=== PATIENT | male | born 1975 | race Caucasian/White ===

== ENCOUNTER 2017-10-24 22:40 | Emergency (ER) | payer BC ==
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
[2017-10-24] MEDS ORDERED: Sodium Chloride 0.9% 10 ML Syringe FLUSH PRN (22:59)
[2017-10-24] MEDS ORDERED: fentaNYL 100 MCG/2 ML SDV IVPUSH ONE (23:00)
[2017-10-24] MEDS ORDERED: Sodium Chloride 0.9% 1,000 ML IV SCH (23:00)
[2017-10-24] MEDS ORDERED: Ondansetron 4 MG/2 ML SDV IVPUSH ONE (23:00)
[2017-10-24] MEDS ORDERED: Iopamidol 612 MG/ML 100 ML Bottle IV STA (23:07)
[2017-10-24] MEDS ORDERED: Sodium Chloride 0.9% 75 ML IV STA (23:07)
[2017-10-25] MEDS ORDERED: fentaNYL 100 MCG/2 ML SDV IVPUSH ONE (00:25)
== END 2017-10-25 01:52 | disposition home or self-care (01) ==
LOC: JP.ED 22:40
DX: S42.012A Anterior displaced fracture of sternal end of left clavicle, initial encounter for closed fracture (principal); S20.212A Contusion of left front wall of thorax, initial encounter; S22.32XA Fracture of one rib, left side, initial encounter for closed fracture; F17.210 Nicotine dependence, cigarettes, uncomplicated; V86.99XA Unspecified occupant of other special all-terrain or other off-road motor vehicle injured in nontraffic accident, initial encounter
CPT/HCPCS: 36415; 71260; 80048; 85027; 96361; 96374; 96375; 96376; 99284; J2405; J3010; J7030; J7050; Q9967